=== PATIENT | male | born 1950 | race Caucasian/White ===

== ENCOUNTER → 2020-01-11 | Outpatient (CLI) | payer OTHER ==
[~2020-01-11] MED LIST: ASPI81CH PO; ASPI81EC PO; CARI350 PO; CELE200 PO; CIPR500 PO; DIAZ5 PO; HYDACE5 PO; HYDR1TAB94 PO; KETO10 PO; METO50 PO; OXYACE5T PO; PSYL5.85P PO; RXHYDACE PO; SIMV40 PO; SIMV80 PO; VERA180ER PO; VERA180ERB PO; Voltaren100 GM TP; ZOLP10 PO
== END | disposition home or self-care (01) ==
LOC: LAB 09:18 → LAB SHORT 09:18
DX: H02.9 Unspecified disorder of eyelid (principal)
CPT/HCPCS: 88305

== ENCOUNTER → 2020-02-08 | Outpatient (CLI) | payer OTHER | END | disposition home or self-care (01) | LOC: PLD 09:20 → LAB SHORT 09:20 | DX: Q82.8 Other specified congenital malformations of skin (principal) | CPT/HCPCS: 88305 ==

== ENCOUNTER → 2023-05-18 | Outpatient (CLI) | payer OTHER ==
[2023-05-22 12:53] LABS: Stool Occult Bld Immuno 1 Negative (NEGATIVE)
== END ==
LOC: LAB 07:00 → LAB SHORT 07:00
PROVIDERS: Family Medicine
DX: D64.9 Anemia, unspecified (principal)
CPT/HCPCS: G0328